=== PATIENT | female | born 1950 | race Caucasian/White ===

== ENCOUNTER 2016-10-16 20:19 | Emergency (ER) | payer MEDICARE, OTHER ==
[~2016-10-16] VITALS: Ht 157.5 cm; Wt 80.8 kg
[~2016-10-16 20:19] MED LIST: ADV50050 INHALATION; CARV12.579 PO; CELE200C PO; CEPH-443 PO; CLOP75TA4 PO; DICLOFENAC 3%; DICY20TA59 PO; GLYB1TAB3; HUM10VIA9; IBUP800T25 PO; LATA2.5D2 BOTH EYES; MEMA10TA16 PO; NIAC500T81 PO; NOVO3I SC; OMEP20CA16 PO; POTA8CAP PO; TORS10TA18 PO; TRAM50TA2 PO; VALS1TAB76 PO
[2016-10-16 20:43] VITALS: Ht 157.5 cm; Wt 80.8 kg
[2016-10-16] MEDS ORDERED: CETI10CA PO (21:23)
[2016-10-16] MEDS ORDERED: AMO500 PO (21:23)
[2016-10-16] MEDS ORDERED: IBUP-1542 PO (21:23)
--- NOTE | 2016-10-16 21:31 | ERD ---
ER Documentation Chief Complaint Date/Time DATE: 10/16/16 TIME: 21:29 Chief Complaint R ear pain that got worse today HPI 66-year-old female presents here in emergency department for complaints of right ear pain started a week ago, worst today. Patient described the pain as throbbing pain, 6/10 scale, not better or worse with anything. Patient was seen by primary care doctor, was told to have possibly outer ear infection, was given Cortisporin Otic drops, is taking deep breaths also, patient can use that the pain. Patient does not have any vomiting here. Patient did not have any trauma near. Patient does not have any fever or chills. Patient denies any foreign body sensation in the ear. ROS All systems reviewed and are negative except as per history of present illness. Medications Home Meds Active Scripts Cetirizine Hcl* (Zyrtec*) 10 Mg Capsule, 10 MG PO DAILY, #30 TAB.CHEW Prov:VANESSA MAIER [employer]ACH[employer]PERATOR 10/16/16 Amoxicillin* (Amoxicillin*) 500 Mg Cap, 500 MG PO TID for 10 Days, CAP Prov:VANESSA MAIER [employer]IFIC[employer] MACHINE OPERATOR 10/16/16 Ibuprofen* (Motrin*) 600 Mg Tab, 600 MG PO Q6H Y for PAIN AND OR ELEVATED TEMP, #30 TAB Prov:VANESSA MAIER [employer]IFIC[employer] MACHINE OPERATOR 10/16/16 Tramadol HCl (Tramadol HCl) 50 Mg Tablet, 50 MG PO Q6 Y for PAIN, #10 TAB Prov:CYNTHIA PRO MD 05/13/16 Cephalexin* (Keflex*) 500 Mg Capsule, 500 MG PO Q6, #40 CAP Prov:CYNTHIA PRO MD 05/13/16 Ibuprofen* (Motrin*) 800 Mg Tab, 800 MG PO Q6H Y for PAIN AND OR ELEVATED TEMP, #30 TAB Prov:MOE BLACK DO 05/11/16 Dicyclomine Hcl* (Bentyl*) 20 Mg Tablet, 20 MG PO QID, #30 TAB Prov:MOE BLACK DO 05/11/16 Reported Medications [Diclofenac Gel 3%] No Conflict Check, APPLIC 05/12/16 Valsartan-Hydrochlorothiazide (Valsartan-HCTZ) 160-12.5 Mg Tablet, 1 TAB PO DAILY, #30 TAB 05/12/16 Niacin* (Niacin*) 500 Mg Tablet, 500 MG PO DAILY, TAB 05/12/16 Latanoprost (Latanoprost) 2.5 Ml Drops, 1 DROP BOTH EYES QHS, #1 BOTTLE 05/12/16 Celecoxib* (Celebrex*) 200 Mg Capsule, 200 MG PO DAILY, CAP 05/12/16 Clopidogrel Bisulfate* (Clopidogrel Bisulfate*) 75 Mg Tablet, 75 MG PO DAILY, # 30 TAB 05/12/16 Carvedilol* (Carvedilol*) 12.5 Mg Tablet, 12.5 MG PO BID, #60 TAB 05/12/16 Salmeterol Xinaf-Fluticasone* (Advair*) 500/50 Diskus Inhaler, 1 INH INHALATION BID, #1 INHALER 05/12/16 Torsemide (Torsemide) 10 Mg Tablet, 10 MG PO DAILY, TAB 05/12/16 Potassium Chloride* (Potassium Chloride*) 8 Meq Capsule.er, 8 MEQ PO DAILY, CAP 05/12/16 Omeprazole* (Omeprazole*) 20 Mg Capsule.dr, 20 MG PO BID, #60 CAP 05/12/16 Insulin Aspart* (Novolog Insulin Pen*) 100 Unit/Ml Soln, 1 UNIT SC WITH MEALS, EA 05/12/16 Memantine* (Namenda*) 10 Mg Tablet, 10 MG PO BID, #60 TAB 05/12/16 Hum Insulin Nph/Reg Insulin Hm (Novolin 70-30 100 Unit/Ml Vial) 100 Units/Ml Vial 12/16/10 Glyburide, Micro-Metformin Hcl (Glyburid-Metformin) 1 Tab Tablet 12/16/10 Allergies Allergies: Coded Allergies: hydrocodone (Verified Allergy, Unknown, rash, 05/12/16) hydromorphone (Verified Allergy, Unknown, hives, 05/12/16) morphine (Verified Allergy, Unknown, throat swelling, 05/12/16) PMhx/Soc History of Surgery: Yes (back, l. shoulder, tonsillectomy, appendectomy) Anesthesia Reaction: No Hx Neurological Disorder: No Hx Respiratory Disorders: No Hx Cardiac Disorders: Yes (HYPERTENSION) Hx Psychiatric Problems: No Hx Miscellaneous Medical Probl: Yes (GERD,DM) Hx Alcohol Use: No Hx Substance Use: No Hx Tobacco Use: No FmHx Family History: other (HTN dyslipidemia, heart disease) Physical Exam Vitals Vital Signs Date Time Temp Pulse Resp B/P Pulse Ox O2 Delivery O2 Flow Rate FiO2 10/16/16 20:43 97.9 77 18 180/74 98 Physical Exam GENERAL: The patient is well developed and appropriate for usual state of health, in no apparent distress. HEENT: Atraumatic. Ears: Right ear tympanic membrane noted to be erythematous and bulging. Normal left tympanic membrane, no erythema or bulging. No ear canal swelling. No ear discharge. Nose: normal nasal turbinates, no erythema or swelling. Normal nasal discharge. Throat: oropharynx clear. No tonsillar swelling or tonsillar exudates. No lymphadenopathy. CHEST: Clear to auscultation bilaterally. There are no rales, wheezes or rhonchi. HEART: Regular rate and rhythm. No murmurs, clicks, rubs or gallops. No S3 or S4. ABDOMEN: Soft, nontender and nondistended. Good bowel sounds. No rebound or guarding. No gross peritonitis. No gross organomegaly or masses. No Smith sign or McBurney point tenderness. BACK: No midline or flank tenderness. EXTREMITIES: Equal pulses bilaterally. There is no peripheral clubbing, cyanosis or edema. No focal swelling or erythema. Full range of motion. Grossly neurovascularly intact. NEURO: Alert and oriented. Cranial nerves 2-12 intact. Motor strength in all 4 extremities with 5/5 strength. Sensation grossly intact. Normal speech and gait. SKIN: There is no apparent rash or petechia. The skin is warm and dry. HEMATOLOGIC AND LYMPHATIC: There is no evidence of excessive bruising or lymphedema. No gross cervical, axillary, or inguinal lymphadenopathy. Procedures/MDM Medical decision making: Patient symptoms is likely consistent with otitis media , no symptoms of otitis externa or mastoiditis. No symptoms of sepsis at this time. Patient appears well and is hemodynamically stable. Patient does not have any foreign body in the ear, no tympanic membrane perforation noted. No cerumen impaction noted. Patient was given for amoxicillin, ibuprofen, Zyrtec, is advised to follow-up with primary care doctor in 3-4 days for reevaluation of symptoms, is now resolved, ENT specialist for further evaluation and management. Patient was advised to return to emergency department for any worsening symptoms. Departure Diagnosis: Primary Impression: Otitis media Otitis media type: serous Laterality: right Chronicity: acute Recurrence : not specified as recurrent Qualified Code: H65.01 - Right acute serous otitis media, recurrence not specified Condition: Stable Patient Instructions: Otitis Media, Abx Tx (Adult) VANESSA MAIER NP Oct 16, 2016 21:31
== END 2016-10-16 21:24 | disposition home or self-care (01) ==
LOC: E/R 20:19
DX: H65.01 Acute serous otitis media, right ear (principal); I10 Essential (primary) hypertension; E11.9 Type 2 diabetes mellitus without complications; Z79.84 Long term (current) use of oral hypoglycemic drugs; Z79.4 Long term (current) use of insulin
CPT/HCPCS: 99283